=== PATIENT | female | born 1970 | race Caucasian/White ===

== ENCOUNTER 2022-01-12 09:09 | Outpatient (CLI) | payer OTHER | END 2022-01-12 09:10 | disposition home or self-care (01) | LOC: CSHLAB 09:09 | PROVIDERS: ATTEND Surgery | DX: Z20.822 Contact with and (suspected) exposure to COVID-19 (principal) | CPT/HCPCS: 87811 ==

== ENCOUNTER 2022-01-15 08:49 | Outpatient (CLI) | payer MEDICARE | END 2022-01-15 08:50 | disposition home or self-care (01) | LOC: CSHRAD 08:49 | PROVIDERS: ATTEND Surgery | DX: K21.9 Gastro-esophageal reflux disease without esophagitis (principal); K44.9 Diaphragmatic hernia without obstruction or gangrene | CPT/HCPCS: 74220 ==